=== PATIENT | female | born 1995 | race Asian ===

== ENCOUNTER 2024-07-18 11:30 | Outpatient (RCR) | payer OTHER, SELFPAY ==
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
--- NOTE | 2024-06-10 13:25 | PT.OPPOC ---
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) Visit Care Team Role Provider Type Naheed Jeffries MD Attending Provider Physician Family Provider Primary Care Provider Referring Provider Specialty: Family Practice Obstetrics Address: [address] [place] [address], [id number] Email: [email or web address] Plan Of Care PT-OP-T Assessment and Plan Start: 06/03/24 15:42 Freq: Status: Active Protocol: Document 06/10/24 12:59 KW (Rec: 06/10/24 13:24 KW Laptop) Physical Therapy Assessment Rehab Potential Rehabilitation Potential Excellent Evaluation Complexity Number of Personal Factors/Comorbidities 1-2 Number of Body Systems Impaired 1-2 Clinical Presentation at Evaluation Stable Impairments Impairments Activity Tolerance,Functional Activities,Functional Mobility ,Pain,Posture,Soft Tissue Mobility,Strength Goals Three Impairment HAs Short Term Goal (STG) patient reports 50% improved HAs in frequency, duration and intensity STG Duration 6 weeks Two Impairment pain 7/10 R upper trap Short Term Goal (STG) patient reduces pain to 4/10 STG Duration 6 weeks lack of HEP for jaw Impairment lack of HEP Short Term Goal (STG) patient demonstrates Indep with HEP to address asymmetrical opening of Jaw STG Duration 3 weeks Assessment Summary Assessment very pleasant 28 yo comes to PT with neck and upper trap pain with significant PMHx of Hiro Danlos. Pt presents with pain, strength deficits, posture and ergonomic factors and will benefit from skilled PT in order to progress to an active reduced pain lifestyle. She would like to start family planning for a second which will likely contribute to symptoms. Physical Therapy Plan Frequency and Duration Frequency of Treatment 1x/Week Duration of treatment (weeks) 12 Plan of Care Start Date 06/10/24 Plan of Care End Date 09/09/24 Therapeutic Interventions Therapeutic Interventions Home Exercise Program,Joint Mobilizations,Manual Therapy, Neuromuscular Re-education, Patient/Caregiver Education, Self-Care/Home Management,Soft Tissue Mobilization, Therapeutic Activities, Therapeutic Exercises Modalities Biofeedback,Cold Pack/Ice Massage Next Visit Focus/Plan Next Note Type Treatment Note Next Visit Plan start [facility] wall slides with bands manual therapy further posture and positioning education Plan of Care Dates Plan of Care Start Date 06/10/24 Plan of Care End Date 09/09/24 Electronically Signed by: Naomie Braga, TONY 06/10/24 [id number] If you are in agreement with this Plan of Care, please return a signed and dated copy. I have reviewed this Plan of Care and certify that the skilled therapy services above are required to meet the patient?s needs. Physician Signature Date Printed Name and Credentials Clinical Instructor Signature Printed Name and Credentials
--- NOTE | 2024-07-04 13:50 | PT-OP ANOTE ---
noticed patient had cancelled for today. Phoned to see if she planned on coming 07/11 and 07/18. Yes, home today with son/ear infection
--- NOTE | 2024-07-18 12:56 | PT.OTN ---
Current Diagnoses Hiro-Danlos syndrome, unspecified (07/18/24) Physical Therapy Treatment Note PT-OP-A Visit Information Start: 06/03/24 15:42 Freq: Status: Active Protocol: Document 07/18/24 12:51 KW (Rec: 07/18/24 12:56 KW Laptop) Out-Patient Physical Therapy Visit Information Visit Information Visit Type Treatment Note Visit Start Time 11:30 Visit Stop Time 12:15 Visit Number 2 Evaluation Information Evaluation Date 06/10/24 PT-OP-C Subjective Start: 06/03/24 15:42 Freq: Status: Active Protocol: Document 07/18/24 12:51 KW (Rec: 07/18/24 12:56 KW Laptop) OP-PT Subjective Patient Comments Patient Comments was oot for 2 weeks then a sick 1 y/o then she got sick. Overall feeling better. has been working out at the pool gym, continues with constant pain R upper trap/levator scap region PT-OP-F Manual Assessment Start: 06/03/24 15:42 Freq: Status: Active Protocol: Document 06/10/24 12:59 KW (Rec: 06/10/24 13:24 KW Laptop) Manual Assessments Soft Tissue Assessment Soft Tissue Mobility Assessment hypertonic B Upper traps Joint Mobility Assessment Joint Mobility Assessment stiffness mid T-spine PAs, lack of cervical lordosis. TMJ: L TMJ clicks, opens first and furthest Nasal passage: R more clear than left B UE shoulders, elbows, wrists , fingers: hypermobility noted but not overly excessive. PT-OP-J Posture/Palpation/Skin Start: 06/03/24 15:42 Freq: Status: Active Protocol: Document 06/10/24 12:59 KW (Rec: 06/10/24 13:24 KW Laptop) Posture Evaluation Comments Posture Comments 5'4 petite stature, feet do not place on ground in standard chair. shifts from R to L leg crossing, propping over to R more than L, teeth clenching noted. rib flare with wide infra sternal angle. upper ribs elevated, sternum shifted Right. R foot held in supination, lateral weight bearing R foot. anterior pelvic sway PT-OP-K Range of Motion Start: 06/03/24 15:42 Freq: Status: Active Protocol: Document 06/10/24 12:59 KW (Rec: 06/10/24 13:24 KW Laptop) Cervical Spine Range of Motion Cervical Spine Active Degrees Testing Position Sitting Flexion 40 Extension 55 Rotation Left 60 Rotation Right 65 Lateral Flexion Left 15 Lateral Flexion Right 20 ROM Limitations Bony Restriction TMJ Range of Motion Jaw Openning Jaw Openning (mm) 45 Jaw Deviation Deviation Right (mm) 10 PT-OP-M Strength Start: 06/03/24 15:42 Freq: Status: Active Protocol: Document 06/10/24 12:59 KW (Rec: 06/10/24 13:24 KW Laptop) Cervical Spine Strength Cervical Spine Manual Muscle Testing Testing Position Sitting Flexion (C1-2) 5 Normal Extension 5 Normal Rotation Left 5 Normal Rotation Right 5 Normal Lateral Flexion Left (C3) 5 Normal Lateral Flexion Right (C3) 5 Normal Scapula Strength Scapula Manual Muscle Testing Right Elevation (C4) 4 Good Adduction 4+ Good+ Abduction 4 Good Depression 4 Good Comments low trap 4-/5 Left Elevation (C4) 4 Good Adduction 4 Good Abduction 4 Good Depression 4 Good PT-OP-Q Treatments Start: 06/03/24 15:42 Freq: Status: Active Protocol: Document 07/18/24 12:51 KW (Rec: 07/18/24 12:56 KW Laptop) Therapeutic Exercises Sitting Exercises TMJ jaw opening in front of mirror Sitting Exercise Name controlled opening using mirror Side bilateral Reps/Minutes 10 Comments cues for tongue to roof of mouth Other Exercises prone I Y T Other Exercise Name prone I Y T over therapy ball Reps/Minutes x 10 each Comments cues to add 1 Lb wt once these become easy Manual Therapy Treatment Consent Patient gave verbal consent for manual Yes treatment Soft Tissue Mobilization STM/MFR Body Location B UT, Ls, SCM, scalenes Mobilization Type Manual Lymphatic Drainage, Myofascial Release,Strain/ Counterstrain,Sustained Pressure,Trigger Point Release Joint Mobilizations C spine tx Joint general suboccipital release, cervical tx Self-Care/Home Management Treatment Education Other Education ed: regarding tongue thrusting , lateral wb thru feet, lateral WB PT-OP-T Assessment and Plan Start: 06/03/24 15:42 Freq: Status: Active Protocol: Document 07/18/24 12:51 KW (Rec: 07/18/24 12:56 KW Laptop) Physical Therapy Assessment Goals Three Impairment HAs Short Term Goal (STG) patient reports 50% improved HAs in frequency, duration and intensity STG Duration 6 weeks Two Impairment pain 7/10 R upper trap Short Term Goal (STG) patient reduces pain to 4/10 STG Duration 6 weeks lack of HEP for jaw Impairment lack of HEP Short Term Goal (STG) patient demonstrates Indep with HEP to address asymmetrical opening of Jaw STG Duration 3 weeks Assessment Summary Assessment making good gains with understanding EDS and associated reactions focus will be strengthening antagonists Physical Therapy Plan Frequency and Duration Frequency of Treatment 1x/Week Duration of treatment (weeks) 12 Plan of Care Start Date 06/10/24 Plan of Care End Date 09/09/24 Next Visit Focus/Plan Next Note Type Treatment Note [facility] manual therapy further posture and positioning education supine on foam roller
--- NOTE | 2024-08-21 10:45 | PT.OPDS ---
Current Diagnoses Hiro-Danlos syndrome, unspecified (07/18/24) Visit Care Team Role Provider Type Naheed Jeffries MD Attending Provider Physician Family Provider Primary Care Provider Referring Provider Specialty: Family Practice Obstetrics Address: [address] [place] [address], [address] Email: [email or web address] Visit Number Visit Number 2 Discharge Summary PT-OP-C Subjective Start: 06/03/24 15:42 Freq: Status: Active Protocol: Document 07/18/24 12:51 KW (Rec: 07/18/24 12:56 KW Laptop) OP-PT Subjective Patient Comments Patient Comments was oot for 2 weeks then a sick 1 y/o then she got sick . Overall feeling better. has been working out at the pool gym, continues with constant pain R upper trap/ levator scap region PT-OP-F Manual Assessment Start: 06/03/24 15:42 Freq: Status: Active Protocol: Document 06/10/24 12:59 KW (Rec: 06/10/24 13:24 KW Laptop) Manual Assessments Soft Tissue Assessment Soft Tissue Mobility hypertonic B Upper traps Assessment Joint Mobility Assessment Joint Mobility stiffness mid T-spine PAs, lack of cervical lordosis. Assessment TMJ: L TMJ clicks, opens first and furthest Nasal passage: R more clear than left B UE shoulders, elbows, wrists, fingers: hypermobility noted but not overly excessive. PT-OP-J Posture/Palpation/Skin Start: 06/03/24 15:42 Freq: Status: Active Protocol: Document 06/10/24 12:59 KW (Rec: 06/10/24 13:24 KW Laptop) Posture Evaluation Comments Posture Comments 5'4 petite stature, feet do not place on ground in standard chair. shifts from R to L leg crossing, propping over to R more than L, teeth clenching noted. rib flare with wide infra sternal angle. upper ribs elevated, sternum shifted Right. R foot held in supination, lateral weight bearing R foot. anterior pelvic sway PT-OP-K Range of Motion Start: 06/03/24 15:42 Freq: Status: Active Protocol: Document 06/10/24 12:59 KW (Rec: 06/10/24 13:24 KW Laptop) Cervical Spine Range of Motion Cervical Spine Active Degrees Testing Position Sitting Flexion 40 Extension 55 Rotation Left 60 Rotation Right 65 Lateral Flexion Left 15 Lateral Flexion 20 Right ROM Limitations Bony Restriction TMJ Range of Motion Jaw Openning Jaw Openning (mm) 45 Jaw Deviation Deviation Right (mm) 10 PT-OP-M Strength Start: 06/03/24 15:42 Freq: Status: Active Protocol: Document 06/10/24 12:59 KW (Rec: 06/10/24 13:24 KW Laptop) Cervical Spine Strength Cervical Spine Manual Muscle Testing Testing Position Sitting Flexion (C1-2) 5 Normal Extension 5 Normal Rotation Left 5 Normal Rotation Right 5 Normal Lateral Flexion Left 5 Normal (C3) Lateral Flexion 5 Normal Right (C3) Scapula Strength Scapula Manual Muscle Testing Right Elevation (C4) 4 Good Adduction 4+ Good+ Abduction 4 Good Depression 4 Good Comments low trap 4-/5 Left Elevation (C4) 4 Good Adduction 4 Good Abduction 4 Good Depression 4 Good PT-OP-T Assessment and Plan Start: 06/03/24 15:42 Freq: Status: Active Protocol: Document 08/21/24 10:43 KW (Rec: 08/21/24 10:45 KW Laptop) Physical Therapy Assessment Evaluation Complexity Number of Personal 1-2 Factors/ Comorbidities Number of Body 1-2 Systems Impaired Clinical Stable Presentation at Evaluation Goals Three Impairment HAs Short Term Goal (STG patient reports 50% improved HAs in frequency, duration ) and intensity STG Duration 6 weeks Two Impairment pain 7/10 R upper trap Short Term Goal (STG patient reduces pain to 4/10 ) STG Duration 6 weeks lack of HEP for jaw Impairment lack of HEP Short Term Goal (STG patient demonstrates Indep with HEP to address ) asymmetrical opening of Jaw STG Duration 3 weeks Assessment Summary Assessment patient only attended 2 visits in 3 month period, non compliant with plan of care. Will discharge at this time. Recommend massage or chiropractic drop in services with her busy schedule Physical Therapy Plan Discharge Physical Therapy Discharge Reasons No Longer Attending PT Discharge Comments only attended 2 visits, cancelling majority week of. Next Visit Focus/Plan Next Note Type Discharge Summary Next Visit Plan discharged PT
== END 2024-08-26 09:33 | disposition home or self-care (01) ==
LOC: PHYS 11:30
PROVIDERS: Family Provider Student in an Organized Health Care Education/Training Program; PCP Student in an Organized Health Care Education/Training Program; Referring Provider Student in an Organized Health Care Education/Training Program; Visit Provider Student in an Organized Health Care Education/Training Program
DX: Q79.60 Ehlers-Danlos syndrome, unspecified (principal)
CPT/HCPCS: 97110; 97140; 97162; 97530

== ENCOUNTER → 2025-01-06 11:56 | Outpatient (CLI) | payer OTHER, SELFPAY | PROVIDERS: PCP Student in an Organized Health Care Education/Training Program; Visit Provider Student in an Organized Health Care Education/Training Program | DX: J02.9 Acute pharyngitis, unspecified (principal) | CPT/HCPCS: 87081 ==

== ENCOUNTER → 2025-01-22 13:54 | Outpatient (CLI) | payer OTHER, SELFPAY ==
--- NOTE | 2025-01-22 13:54 | DI.US.S_ITS ---
PROCEDURE: US OB >= 14 WEEKS FETUS INDICATIONS: 20 week anatomy scan OUTSIDE/PRIOR DATING DATA: Last menstrual period (LMP): 08/27/2024. LMP-based estimated date of delivery (TRINH): 06/03/2025. First dating scan (date and location): 10/08/2024. Estimated date of delivery (TRINH) from first dating scan: 06/03/2025. TECHNIQUE: Real-time scanning was performed of the fetus, with image documentation and biometric measurements. Endovaginal scanning: Not performed COMPARISON: [facility], OB <= 14 WEEKS FETUS, 10/17/2024, 8:20. FINDINGS: General: A single living intrauterine gestation is present. Presentation: Vertex. Placenta: Placental position is posterior , without previa. Amniotic fluid index: 13.7 cm, normal range is 5-24 cm. Single deepest vertical pocket is 5.3 cm. heart rate: 141 beats per minute. Maternal cervical canal: 2.9 cm long. Normal lower limit is 2.5 cm. biometrics: Biparietal diameter: 5.2 cm, 21 weeks 5 days Head circumference: 19.4 cm, 21 weeks 4 days Abdominal circumference: 17.1 cm, 22 weeks 0 days Femur length: 3.9 cm, 22 weeks 3 days Clinically estimated gestational age: 21 weeks 1 days Composite gestational age from present scan: 22 weeks 0 days Estimated weight and percentile: 480 g, 91% Anatomic survey: Neuro: Ventricles are non-dilated at less than 10 mm. Cisterna magna is normal at 3-11 mm. Cerebellum is normal in size and morphology. Nuchal skin fold: Normal at less than 6 mm between 14-21 weeks gestational age. Face: Nose and lips, facial profile are normal. Spine: No evidence for spina bifida. Heart: Left ventricular echogenic focus measuring 2 mm. 4-chambered heart is present, with normal ventricular outflow tracts. Diaphragm: Diaphragm is intact. Stomach: Left-sided stomach is present. Kidneys: Renal pelviectasis measuring 5.7 mm on the left and 4.3 mm on the right. Normal is less than 5 mm in 2nd trimester, less than 7 mm in 3rd trimester. Cord: 3-vessel cord has orthotopic insertion. Bladder: Normal in size. Extremities: All 4 extremities identified. IMPRESSION: 1. Single live intrauterine consistent with 22 weeks and 0 days. 2. Renal pelviectasis measuring up to 5.7 mm on the left and 4.3 mm on the right. Left is mildly dilated and right is upper limits of normal. Recommend short-term follow-up ultrasound. 3. Left ventricular echogenic focus measuring 2 mm is present, consider aneuploidy screening as clinically desired. 4. Estimated weight is in the 91st percentile, concerning for developing macrosomia. This should be reassessed on follow-up ultrasound. We strive to produce accurate, complete, and clear reports of imaging services. To assist us in improving patient care, this report was composed using standard report templates and voice recognition software. Therefore, it may contain abnormal punctuation, insertions and/or omissions. Occasional wrong-word or sound-alike substitutions may occur. Though we review the report and make efforts to correct it, we do recommend that the report be read carefully in proper context to recognize any text inaccuracies. Dictated by: Rodger Burkett M.D. on 01/22/2025 at 16:38 Approved by: Rodger Burkett M.D. on 01/22/2025 at 16:42
== END ==
LOC: US 13:54
PROVIDERS: PCP Student in an Organized Health Care Education/Training Program; Referring Provider Student in an Organized Health Care Education/Training Program; Visit Provider Student in an Organized Health Care Education/Training Program
DX: Z36.89 Encounter for other specified antenatal screening (principal); Z3A.22 22 weeks gestation of pregnancy
CPT/HCPCS: 76811